=== PATIENT | female | born 1975 | race Caucasian/White ===

== ENCOUNTER 2020-03-08 07:36 | Emergency (ER) | payer BC ==
[~2020-03-08] VITALS: Ht 165.1 cm; Wt 56.7 kg
--- NOTE | 2020-03-08 07:42 | NUR ---
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
--- NOTE | 2020-03-08 07:56 | NUR ---
DR LAST AT BEDSIDE
[2020-03-08] MEDS ORDERED: TDAP [DIPH/PERTUSSIS/TET] 0.5 ML VIAL IM ONE ×2 (08:00→08:02)
[2020-03-08] MEDS ORDERED: AMOX/CLAVULANATE 875 MG TABLET PO ONE (08:00)
[2020-03-08] MEDS ORDERED: AMOX/CLAVULANATE 875 MG TABLET ONE (08:02)
--- NOTE | 2020-03-08 08:08 | NUR ---
TECH AT BEDSIDE FOR CLEANING OF WOUNDS
[2020-03-08 08:47] VITALS: BP 108/75
--- NOTE | 2020-03-08 08:47 | NUR ---
PT. VERBALIZED UNDERSTANDING OF AFTERCARE INSTRUCTIONS.Patient discharged to home in stable condition. Written and verbal after care instructions given. Patient verbalizes understanding of instruction.
== END 2020-03-08 08:48 | disposition home or self-care (01) ==
LOC: ER 07:38
DX: S51.832A Puncture wound without foreign body of left forearm, initial encounter (principal); S61.031A Puncture wound without foreign body of right thumb without damage to nail, initial encounter; W54.0XXA Bitten by dog, initial encounter; Y93.89 Activity, other specified; Y92.89 Other specified places as the place of occurrence of the external cause; Y99.8 Other external cause status
CPT/HCPCS: 90471; 90715; 99283; A6403